=== PATIENT | female | born 2000 | race Two or more races ===

== ENCOUNTER 2025-02-11 12:11 | Emergency (ER) | payer MEDICAID, SELFPAY ==
[2025-02-11 13:06] VITALS: BP 134/90; PULSE 96; RESP 18; TEMP 36.8; O2SAT 98; BMI 32.9
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
[2025-02-11 13:49] LABS: Collection Type, Urine Clean Catch
[2025-02-11 14:06] LABS: Bacteria,Urine Rare; Bilirubin,Urine Negative (Negative); Blood,Urine 3+ (Negative); Glucose, Urine 4+ (Negative); Ketones,Urine Trace (Negative); Leukocyte Esterase,Urine Positive (Negative); Nitrite,Urine Negative (Negative); Protein,Urine 1+ (Neg - Trace); RBC,Urine 1976 /hpf (0-3); Squamous Epithelial Cell,Urine 13 /hpf (0-5); Urobilinogen,Urine Negative mg/dL (0.0-1.0); WBC,Urine 14 /hpf (0-5)
[2025-02-11 14:12] LABS: HCG Qualitative,Urine Negative
[2025-02-11 14:13] LABS: Clarity,Urine Hazy (Clear/Hazy); Color,Urine Lt-Yellow (Lt Yel-Yel)
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
== END 2025-02-11 17:00 | disposition home or self-care (01) ==
PROVIDERS: Nurse Practitioner Primary Care; Emergency Provider Emergency Medicine; PCP Physician Assistant
DX: M94.0 Chondrocostal junction syndrome [Tietze] (principal); S39.91XA Unspecified injury of abdomen, initial encounter; V89.2XXA Person injured in unspecified motor-vehicle accident, traffic, initial encounter
CPT/HCPCS: 71046; 74176; 81001; 81025; 99284